=== PATIENT | male | born 1975 | race African-American/Black ===

== ENCOUNTER 2016-12-19 16:42 | Emergency (ER) | payer MEDICAID, OTHER ==
[~2016-12-19] VITALS: Ht 180.3 cm; Wt 94.0 kg
[~2016-12-19 16:42] MED LIST: BUSP10 PO; OMEP20TA39 PO
[2016-12-19 16:54] VITALS: BP 117/84; PULSE 100; RESP 16; TEMP 98.8; O2SAT 98
[2016-12-19] MEDS ORDERED: OMEP20CA2 (17:21)
[2016-12-19] MEDS ORDERED: OMEP20TA PO (17:21)
[2016-12-19] MEDS ORDERED: BUSP10TA PO (17:21)
[2016-12-19] MEDS ORDERED: LIDOCAINE 1%/EPINEPHrine 1:100,000 SOLN 20 ML VIAL INFIL ONE (17:30)
[2016-12-19] MEDS ORDERED: BACT800T5 PO (17:32)
[2016-12-19] MEDS ORDERED: CEPH500T PO (17:32)
--- NOTE | 2016-12-19 17:32 | PD ---
HPI Chief Complaint: Lump, Cyst, Hernia Time Seen by Provider: 17:29 Travel History International Travel<30 days: No Contact w/Intl Traveler<30days: No Traveled to known affect area: No History of Present Illness HPI Patient is a 41-year-old male presenting with painful swollen area on the right anterior chest wall. He states that he has had a small pea-like lump there for several years. Over the last week it has gotten larger and painful. He has applied warm compresses which have brought it to a point. It has not drained. It is minimally painful, worse with touch. Pain does not radiate. He denies chest pressure and shortness of breath. He denies any fever, chills, nausea and vomiting. He denies diabetes and history of immunocompromise state. He denies any history of IVDA or MRSA. PFSH Past Medical History Anxiety: Yes Depression: No Cancer: No Cardiovascular Problems: Yes (HX pericarditis) Chest Pain: Yes Diminished Hearing: No Endocrine: No GERD: Yes Genitourinary: No Headaches: Yes Immune Disorder: No Musculoskeletal: No Neurologic: No Psychiatric: No Reproductive: No Respiratory: No Immunizations Current: Yes Radiation Therapy: No Tetanus Vaccination: Unknown Influenza Vaccination: No Past Surgical History Body Medical Devices: PINS AND SCREWS IN RIGHT HAND Neurologic Surgery: Yes Other Surgery: Yes (LYMPH NODES REMOVED NEAR NECK) Social History Alcohol Use: Yes (5/DAY) Tobacco Use: Yes (1 PPD) Substance Use: No Allergies-Medications (Allergen,Severity, Reaction): Coded Allergies: No Known Allergies (Verified , 12/19/16) Reported Meds & Prescriptions Reported Meds & Active Scripts Active Cephalexin 500 Mg Tab 500 Mg PO Q6H Bactrim DS (Sulfamethoxazole-Trimethoprim) 800-160 Mg Tab 1 Tab PO BID Reported Buspirone (Buspirone HCl) 10 Mg Tab 10 Mg PO BID Omeprazole 20 Mg Tab 20 Mg PO BID Review of Systems Except as stated in HPI: all other systems reviewed are Neg Physical Exam Narrative GENERAL: Well-developed and well-nourished adult male in no acute distress. SKIN: 2 cm ovoid area of erythema with central fluctuance and some pointing the right anterior chest wall. There is some surrounding induration without streaking. No discharge. No crepitus. Warm and dry. Good turgor without tenting. HEAD: Normocephalic and atraumatic. EYES: PERRL bilaterally, 5mm. EOMI bilaterally. No injection or icterus present. No proptosis. Lids without edema or erythema. ENT: Buccal mucosa pink and moist. Oropharynx free of erythema, tonsillar hypertrophy, masses, swelling, asymmetry and exudates. Uvula midline and airway patent. NECK: Supple, no meningeal sign. Trachea midline, no JVD. No cervical or facial lymphadenopathy. CARDIOVASCULAR: Regular rate and rhythm without murmurs, rubs, clicks or gallops. RESPIRATORY: Clear to auscultation bilaterally with symmetrical rise and fall, no distress or use of accessory muscles. NEUROLOGIC: CN II-XII grossly intact. Awake and alert. Motor grossly within normal limits. Normal speech. PSYCHIATRIC: Appropriate mood and affect; insight and judgment normal. Data Data Last Documented VS Vital Signs Date Time Temp Pulse Resp B/P Pulse Ox O2 Delivery O2 Flow Rate FiO2 12/19/16 16:54 98.8 100 16 117/84 98 Orders Wound Culture And Gram Stain (12/19/16 17:28) Lidocai-Epi 1%-1:100,000 Inj (Xylocaine- (12/19/16 17:30) MDM Medical Decision Making Medical Screen Exam Complete: Yes Emergency Medical Condition: Yes Differential Diagnosis Abscess versus cellulitis versus infected sebaceous cyst versus lymphadenopathy Narrative Course Patient is a 41-year-old otherwise healthy male who is afebrile and nontoxic- appearing presenting one appears to be a abscess in the right anterior chest wall. He has had a small pea-like lump there for several years which has gotten acutely larger over 1 week. There is significant fluctuance and some pointing. No surrounding cellulitic changes. Incision and drainage performed per attached procedure narrative, wound culture sent. Patient given prescription for Bactrim and Keflex. See discharge paperwork for further instructions. The plan was discussed with the patient who acknowledged their understanding and agreement. Reinforced the follow-up with primary care is critically important. Patient instructed on emergent conditions that should prompt return to ED. Procedures Procedure Narrative I&D LOCATION: Right chest SIZE: 2 cm ANESTHESIA: Ethyl chloride 1% lidocaine with epi PROCEDURE: The abscess was prepped with Betadine and sterilely draped. The abscess was infiltrated with 1 cc of above anesthetic. Incision was made with a #11 blade with length of 1 cm and depth of 4 mm. Expressed purulent and bloody material, approximately 2 mL. The wound was copiously irrigated and loculations were broken up. The wound was left open and covered with a sterile dressing. Packing was not done. The patient was advised to keep the dressing clean and dry. Patient tolerated the procedure well. Diagnosis Primary Impression: Abscess Patient Instructions: Abscess Incision and Drainage (ED), General Instructions Additional Instructions: Keep area clean, dry, and covered with dressing/bandage Apply warm compresses daily to help with drainage Warm water Epsom salt soaks will help promote drainage Wound will continue to drain which is normal Take Tylenol or ibuprofen for pain Take medications as directed Follow-up with PCP in 2 days, call laboratory for wound culture results Return to the ED for any acute worsening of symptoms including worsening swelling, spreading redness, fever, chills, nausea and vomiting Med/Other Pt SpecificInfo: Prescription(s) given Scripts Cephalexin 500 Mg [id number] Mg PO Q6H #40 TAB Prov:Rivka Luciano MD 12/19/16 Sulfamethoxazole-Trimethoprim (Bactrim DS)800-160 Mg Tab1 Tab PO BID #20 TAB Prov:Rivka Luciano MD 12/19/16 Disposition: 01 DISCHARGE HOME Condition: Stable Dipak Degroot III Dec 19, 2016 17:32
[2016-12-19] MEDS ORDERED: IBUPROFEN 800 MG TAB PO ONE (18:45)
[2016-12-19] MEDS ORDERED: TETANUS/DIPHTHERIA TOXOID ADULT 0.5 ML VIAL IM ONE (19:00)
[2017-01-11] MEDS ORDERED: OMEP20TA PO (16:14)
[2017-01-11] MEDS ORDERED: BUSP10TA PO (16:14)
[2017-05-07] MEDS ORDERED: OMEP20TA PO (14:52)
[2017-05-07] MEDS ORDERED: BENZ100 PO (14:52)
[2017-05-07] MEDS ORDERED: BUSP10TA PO (14:52)
[2017-05-07] MEDS ORDERED: ZITHTAB PO (14:52)
[2017-05-08] MEDS ORDERED: OMEP20TA PO (13:28)
== END 2016-12-19 19:18 | disposition home or self-care (01) ==
LOC: PHED 16:42 → PHEFT 19:18
DX: F41.9 Anxiety disorder, unspecified (principal); F17.210 Nicotine dependence, cigarettes, uncomplicated; F10.20 Alcohol dependence, uncomplicated; Z23 Encounter for immunization; L02.213 Cutaneous abscess of chest wall
CPT/HCPCS: 10060; 87070; 87205; 90471; 90714